=== PATIENT | male | born 1995 | race African-American/Black ===

== ENCOUNTER 2021-06-08 09:35 | Emergency (ER) | payer OTHER ==
[~2021-06-08] VITALS: Ht 185.4 cm; Wt 95.5 kg
[2021-06-08 09:58] VITALS: TEMP 97.1
[2021-06-08 11:36] LABS: BASO % 0.4 % (0.0-2.0); EOS # 0.1 (0.0-0.7); GRAN # 2.6 (1.4-6.5); HEMOGLOBIN 15.4 g/dl (13.5-18.0); LYMPH # 1.5 (1.2-3.4); LYMPH % 31.6 % (20.0-51.0); MEAN CELL VOLUME 81 fl (80.0-100.0); MEAN CORPUSCULAR HEMOGLOBIN 27 pg (27.0-31.0); MEAN CORPUSCULAR HGB CONC 34 g/dl (33.0-37.0); MEAN PLATELET VOLUME 11.4 fl (7.4-10.4); MONO # 0.6 (0.1-0.6); MONO % 12.6 % (1.7-9.3); PLATELET COUNT 223 K/mm3 (130-400); RED BLOOD COUNT 5.66 M/mm3 (4.20-5.60); REDCELL DISTRIBUTION WIDTH-CV 15.9 % (11.5-14.5)
[2021-06-08 11:49] LABS: ALBUMIN 4.7 gm/dL (3.5-5.0); BILIRUBIN,TOTAL 1.6 mg/dL (0.0-1.0); CALCIUM 9.5 mg/dL (8.4-10.2); CREATININE, serum 0.87 (0.66-1.25); POTASSIUM 3.9 mmol/L (3.4-5.0); TOTAL PROTEIN 8.1 gm/dL (6.4-8.2)
[2021-06-08 11:50] LABS: COLLECTION METHOD CLEAN CATCH
[2021-06-08 11:55] LABS: MUCOUS Present /lpf; PH 6 (5-8); SQUAMOUS EPITHELIAL 0-2 /hpf; URINE APPEARANCE Clear; URINE BACTERIA Rare /hpf; URINE BILIRUBIN Negative (NEGATIVE); URINE BLOOD Negative (NEGATIVE); URINE COLOR Yellow; URINE GLUCOSE Negative (NEGATIVE); URINE KETONE Negative (NEGATIVE); URINE LEUKOCYTE ESTERASE Negative (NEGATIVE); URINE NITRATE Negative (NEGATIVE); URINE PROTEIN(semi-quant) Negative (NEGATIVE); URINE RBC 0-2 /hpf; URINE UROBILINOGEN Negative (NEGATIVE)
[2021-06-08] MEDS ORDERED: ZOFRAN ODT8 MG PO (12:36)
[2021-06-08 13:20] VITALS: BP 120/61; PULSE 80
== END 2021-06-08 13:23 | disposition home or self-care (01) ==
LOC: COL.ER 09:35
PROVIDERS: Nurse Practitioner Family
DX: U07.1 COVID-19 (principal); G43.909 Migraine, unspecified, not intractable, without status migrainosus; R79.89 Other specified abnormal findings of blood chemistry
CPT/HCPCS: C9113; J1200; J1885; J2405; J7030